=== PATIENT | female | born 2000 | race Two or more races ===

== ENCOUNTER 2021-09-17 09:02 | Emergency (ER) | payer OTHER ==
[~2021-09-17] VITALS: Ht 154.9 cm; Wt 56.8 kg
[2021-09-17 09:20] VITALS: BP 101/63
[2021-09-17] MEDS ORDERED: tetanus & diphtheria toxoid (Td) vaccine 0.5ml IMVAC ONE (11:25)
[2021-09-17] MEDS ORDERED: TETanus/Pertussis (Acell)/Diphther VAC/PF (Tdap-Adult) 0.5ml syringe IMVAC ONE (11:30)
--- NOTE | 2021-09-17 11:41 | NUR ---
bilat knee wounds cleaned with 250cc sterile water. topical abx applied. dressing applied. informed
== END 2021-09-17 12:33 | disposition home or self-care (01) ==
LOC: ER 09:03
DX: S80.212A Abrasion, left knee, initial encounter (principal); S80.211A Abrasion, right knee, initial encounter; S70.211A Abrasion, right hip, initial encounter; S00.81XA Abrasion of other part of head, initial encounter; V49.9XXA Car occupant (driver) (passenger) injured in unspecified traffic accident, initial encounter; Y93.89 Activity, other specified; Y92.89 Other specified places as the place of occurrence of the external cause; Y99.8 Other external cause status
CPT/HCPCS: 73564; 90471; 90715; 99283